=== PATIENT | male | born 1995 | race Caucasian/White ===

== ENCOUNTER 2023-12-10 13:07 | Emergency (ER) | payer SELFPAY ==
--- NOTE | 2023-12-10 13:45 | ER ---
Nurse's Notes [facility] Name: Baljinder Hernandez Jr Age: 28 yrs Sex: Male : 1995 Arrival Date: 12/10/2023 Time: 13:07 Bed IW1 Private MD: Diagnosis: Encounter for screening, unspecified Presentation: 12/09 13:32 Chief complaint: Patient states: "I just need a work note to return to work, I was sick aa5 with a stomach bug throwing up". Coronavirus screen: vomiting. Ebola Screen: Patient denies travel to an Ebola-affected area in the 21 days before illness onset. Initial Sepsis Screen: Does the patient meet any 2 criteria? No. Patient's initial sepsis screen is negative. Does the patient have a suspected source of infection? No. Patient's initial sepsis screen is negative. Risk Assessment: Do you want to hurt yourself or someone else? Patient reports no desire to harm self or others. Onset of symptoms was 2023. 13:32 Method Of Arrival: Ambulatory aa5 13:32 Acuity: SANDRITA 5 aa5 Triage Assessment: 13:33 General: Appears comfortable, Behavior is calm, cooperative. Pain: Denies pain. EENT: aa5 No signs and/or symptoms were reported regarding the EENT system. Neuro: Level of Consciousness is awake, alert, obeys commands, Oriented to person, place, time, situation. Cardiovascular: Patient's skin is warm and dry. Respiratory: Airway is patent Respiratory effort is even, unlabored, Respiratory pattern is regular, symmetrical. GI: Abdomen is non-distended, Bowel sounds present X 4 quads. Abd is soft and non tender X 4 quads. : No signs and/or symptoms were reported regarding the genitourinary system. Derm: Skin is pink, warm \\T\\ dry. Musculoskeletal: Range of motion: intact in all extremities. Historical: - Allergies: 13:33 No Known Allergies; aa5 - Home Meds: 13:33 None [Active]; aa5 - PMHx: 13:33 None; aa5 - Immunization history:: Adult Immunizations unknown. - Infectious Disease History:: Denies. - Social history:: Smoking status: Reported history of juuling and/or vaping. Screenin:33 [facility] ED Fall Risk Assessment (Adult) History of falling in the last 3 months, aa5 including since admission No falls in past 3 months (0 pts) Confusion or Disorientation No (0 pts) Intoxicated or Sedated No (0 pts) Impaired Gait No (0 pts) Mobility Assist Device Used No (0 pt) Altered Elimination No (0 pt) Score/Fall Risk Level 0 - 2 = Low Risk Oriented to surroundings, Maintained a safe environment, Educated pt \\T\\ family on fall prevention, incl call for assistance when getting out of bed. Abuse screen: Denies threats or abuse. Nutritional screening: No deficits noted. Tuberculosis screening: No symptoms or risk factors identified. Assessment: 13:55 Reassessment: Patient is alert, oriented x 3, equal unlabored respirations, skin aa5 warm/dry/pink. Vital Signs: 13:32 BP 126 / 76; Pulse 85; Resp 16 S; Temp 98.6(O); Pulse Ox 100% on R/A; Weight 90.72 kg aa5 (R); Height 6 ft. 0 in. (R); 13:32 Body Mass Index 27.12 (90.72 kg, 182.88 cm) aa5 ED Course: 13:10 Patient arrived in ED. rg4 13:11 Jluis Dotosn PA is PHCP. cp 13:11 Marcus Amaya MD is Attending Physician. cp 13:32 Arm band placed on. aa5 13:32 Patient has correct armband on for positive identification. aa5 13:33 Triage completed. aa5 13:55 Gabby Manriquez RN is Primary Nurse. aa5 13:55 No provider procedures requiring assistance completed. Patient did not have IV access aa5 during this emergency room visit. Administered Medications: No medications were administered Medication: 13:55 VIS not applicable for this client. aa5 Outcome: 13:44 Discharge ordered by MD. cp 13:54 Discharged to home ambulatory, aa5 13:54 Condition: good 13:54 Discharge instructions given to patient, Instructed on discharge instructions, follow up and referral plans. Demonstrated understanding of instructions, follow-up care, 13:55 Patient left the ED. aa5 Signatures: Gabby Manriquez, ROGELIO RN aa5 Jluis Dotson PA PA Helene Berry rg4
--- NOTE | 2023-12-10 13:45 | EDPHYS ---
Physician Documentation [facility] Name: Baljinder Hernandez Jr Age: 28 yrs Sex: Male : 1995 Arrival Date: 12/10/2023 Time: 13:07 Bed IW1 Private MD: ED Physician Marcus Amaya HPI: 12/09 13:35 This 28 yrs old Male presents to ER via Ambulatory with complaints of Medical Clearance cp - needs work excuse to return to work. 13:35 The patient presents to the emergency department with nausea, vomiting, that is cp intermittent, diarrhea, that is intermittent, abdominal pain. Onset: The symptoms/episode began/occurred last couple days. Possible causes: unknown. 13:35 Associated signs and symptoms: Pertinent negatives: fever, GI bleeding. Severity of cp symptoms: in the emergency department the symptoms have improved. Patient requests note for work and declines any testing at this time. Reports symptoms improving. Historical: - Allergies: 13:33 No Known Allergies; aa5 - Home Meds: 13:33 None [Active]; aa5 - PMHx: 13:33 None; aa5 - Immunization history:: Adult Immunizations unknown. - Infectious Disease History:: Denies. - Social history:: Smoking status: Reported history of juuling and/or vaping. ROS: 13:35 Constitutional: Negative for body aches, chills, fever, poor PO intake, cp 13:35 Abdomen/GI: Positive for nausea, vomiting, and diarrhea, Negative for constipation, 13:35 Respiratory: Negative for cough, shortness of breath, wheezing, cp Exam: 13:40 Constitutional: The patient appears in no acute distress, alert, awake, comfortable, cp non-toxic, well developed, well nourished, 13:40 Head/Face: Normocephalic, atraumatic. cp 13:40 Eyes: Periorbital structures: appear normal, Conjunctiva: normal, no exudate, no injection, Sclera: no appreciated abnormality, Lids and lashes: appear normal, bilaterally, 13:40 ENT: External ear(s): are unremarkable, Nose: is normal, Mouth: Lips: moist, Oral mucosa: pink and intact, moist, Posterior pharynx: Airway: no evidence of obstruction, patent, 13:40 Chest/axilla: Inspection: normal, 13:40 Cardiovascular: Rate: normal, Rhythm: regular, 13:40 Respiratory: the patient does not display signs of respiratory distress, Respirations: normal, no use of accessory muscles, no retractions, labored breathing, is not present, Breath sounds: are clear throughout, no decreased breath sounds, no stridor, no wheezing, 13:40 Abdomen/GI: Exam negative for discomfort, distension, guarding, Inspection: abdomen appears normal, 13:40 Skin: no rash present. Vital Signs: 13:32 BP 126 / 76; Pulse 85; Resp 16 S; Temp 98.6(O); Pulse Ox 100% on R/A; Weight 90.72 kg aa5 (R); Height 6 ft. 0 in. (R); 13:32 Body Mass Index 27.12 (90.72 kg, 182.88 cm) aa5 MDM: 13:32 Patient medically screened. cp 13:40 Differential diagnosis: Nonspecific abd pain, gastritis, cholecystitis, pancreatitis, cp appendicitis, diverticulitis, viral gastroenteritis, gastroenteritis. 13:43 Data reviewed: vital signs, nurses notes, and as a result, I will discharge patient. cp 13:43 Counseling: I had a detailed discussion with the patient and/or guardian regarding the cp historical points, exam findings, and any diagnostic results supporting the discharge/admit diagnosis, to return to the emergency department if symptoms worsen or persist or if there are any questions or concerns that arise at home. Administered Medications: No medications were administered Disposition Summary: 12/10/23 13:44 Discharge Ordered Notes: Location: Home cp Problem: new cp Symptoms: have improved cp Condition: Stable cp Diagnosis - Encounter for screening, unspecified cp Followup: cp - With: Private Physician - When: 1 - 2 days - Reason: Worsening of condition Discharge Instructions: - Discharge Summary Sheet cp - Form - Excuse from Work, School, or Physical Activity cp Forms: - Medication Reconciliation Form cp - Antibiotic Education cp - Prescription Opioid Use cp - Patient Portal Instructions cp - Leadership Thank You Letter cp - Work release form hb Signatures: Gabby Manriquez RN RN aa5 Jluis Dotson PA PA cp Corrections: (The following items were deleted from the chart) 13:38 13:37 This 28 yrs old Male presents to ER via Ambulatory with complaints of Medical cp Clearance - needs work excuse to return to work. cp
[2023-12-11 14:44] VITALS: BP 126/76; TEMP 98.6; O2SAT 100
== END 2023-12-10 13:55 | disposition home or self-care (01) ==
LOC: ER 13:07
DX: Z02.79 Encounter for issue of other medical certificate (principal)
CPT/HCPCS: 99282

== ENCOUNTER 2024-08-01 17:36 | Emergency (ER) | payer SELFPAY ==
[2024-08-01] MEDS ORDERED: NEOMY/POLY/HC 1% OTIC DROPS ONE (18:57)
[2024-08-01 19:10] LABS: SARS-CoV-2 Antigen CONTROL BLUE LINE VIS/BG OK
--- NOTE | 2024-08-01 19:10 | ER ---
Nurse's Notes [facility] Name: Baljinder Hernandez Jr Age: 28 yrs Sex: Male : 1995 Arrival Date: 08/01/2024 Time: 17:36 Bed 11 Private MD: Diagnosis: Acute upper respiratory infection, unspecified;Acute serous otitis media, bilateral;Otitis externa in other diseases classified elsewhere, bilateral;Fever, unspecified;SARS-associated coronavirus as the cause of diseases classified elsewhere Presentation: 08/01 18:05 Chief complaint: Left ear pain, fever, body aches, sore throat, cough, congestion, and hb N/D x 2 days. TMAX 102. Coronavirus screen: Client presents with at least one sign or symptom that may indicate coronavirus-19. Provider contacted for isolation considerations. Ebola Screen: No symptoms or risks identified at this time. Initial Sepsis Screen: Does the patient meet any 2 criteria? No. Patient's initial sepsis screen is negative. Does the patient have a suspected source of infection? No. Patient's initial sepsis screen is negative. Risk Assessment: Do you want to hurt yourself or someone else? Patient reports no desire to harm self or others. Onset of symptoms was July 31, 2024. 18:05 Method Of Arrival: Ambulatory hb 18:05 Acuity: SANDRITA 4 hb Historical: - Allergies: 18:07 No Known Allergies; hb - Home Meds: 18:07 None [Active]; hb - PMHx: 18:07 None; hb - PSHx: 18:07 None; hb - Immunization history:: Adult Immunizations up to date. - Infectious Disease History:: Denies. - Social history:: Smoking status: Reported history of juuling and/or vaping. Screenin:46 [facility] ED Fall Risk Assessment (Adult) History of falling in the last 3 months, tm6 including since admission No falls in past 3 months (0 pts) Confusion or Disorientation No (0 pts) Intoxicated or Sedated No (0 pts) Impaired Gait No (0 pts) Mobility Assist Device Used No (0 pt) Altered Elimination No (0 pt) Score/Fall Risk Level 0 - 2 = Low Risk Oriented to surroundings, Maintained a safe environment, Educated pt \T\ family on fall prevention, incl call for assistance when getting out of bed. Abuse screen: Denies threats or abuse. Denies injuries from another. Nutritional screening: No deficits noted. Tuberculosis screening: No symptoms or risk factors identified. Assessment: 19:45 General: Appears in no apparent distress. uncomfortable, Behavior is calm, cooperative. tm6 Pain: Denies pain. Pain: Complains of pain in left ear and right ear. Neuro: Level of Consciousness is awake, alert, obeys commands. Neuro: Oriented to person, place, time, situation. Cardiovascular: Patient's skin is warm and dry. Respiratory: Airway is patent Respiratory effort is even, unlabored, Respiratory pattern is regular, symmetrical. GI: No signs and/or symptoms were reported involving the gastrointestinal system. Abdomen is flat, non-distended. : No signs and/or symptoms were reported regarding the genitourinary system. EENT: Reports pain in right ear and left ear. Derm: No signs and/or symptoms reported regarding the dermatologic system. Musculoskeletal: No signs and/or symptoms reported regarding the musculoskeletal system. Vital Signs: 18:05 BP 132 / 80; Pulse 99; Resp 20; Temp 100.8(O); Pulse Ox 100% on R/A; Weight 90.72 kg; hb Height 6 ft. 0 in. ; Pain 5/10; 19:45 BP 130 / 79; Pulse 80; Resp 17; Temp 99.9; Pulse Ox 100% on R/A; Pain 5/10; tm6 18:05 Body Mass Index 27.12 (90.72 kg, 182.88 cm) hb 18:05 Pain Scale: Adult hb 19:45 Pain Scale: Adult tm6 ED Course: 17:39 Patient arrived in ED. mr 17:42 Jluis Hansen MD is Attending Physician. inge 18:07 Triage completed. hb 18:07 Arm band placed on. hb 19:06 Danielle Pacheco MD is Referral Physician. inge 19:46 Patient has correct armband on for positive identification. Provided Education on: use tm6 of prescription meds. 19:46 No provider procedures requiring assistance completed. Patient did not have IV access tm6 during this emergency room visit. Administered Medications: 18:56 CANCELLED (Duplicate Order): ciprodexdrops 4 drops Otic once inge 19:04 CANCELLED (Duplicate Order): moxifloxacin Drops 0.5 % (Moxeza) 2 drops Ophthalmic once; inge 2 DROPS TO EACH EAR 19:13 CANCELLED (Duplicate Order): amoxicillin-xjstzefdjis624 mg PO once inge 19:27 Drug: Ibuprofen PO 800 mg PO once Route: PO; tm6 19:48 Follow up: Response: Medication administered at discharge. tm6 19:27 Drug: Acetaminophen PO 650 mg PO once Route: PO; tm6 19:48 Follow up: Response: Medication administered at discharge. tm6 19:27 Drug: AZITHromycin PO 500 mg PO once Route: PO; tm6 19:48 Follow up: Response: Medication administered at discharge. tm6 19:45 Drug: Rocephin (cefTRIAXone) IM 1 grams IM once Route: IM; Site: left gluteus; tm6 19:48 Follow up: Response: Medication administered at discharge. tm6 19:45 Drug: Obtcwlaa-Mxjdwgjwh-GD Otic Drops 4 drops Otic once; EACH EAR Route: Otic; Site: tm6 both ears; 19:48 Follow up: Response: Medication administered at discharge. tm6 Medication: 19:45 VIS not applicable for this client. tm6 Outcome: 19:09 Discharge ordered by [facility] 19:46 Discharged to home ambulatory, tm6 19:46 Condition: stable 19:46 Discharge instructions given to patient, Instructed on discharge instructions, follow up and referral plans. medication usage, Demonstrated understanding of instructions, follow-up care, medications, Prescriptions given X 3, 19:48 Patient left the ED. tm6 Signatures: Jluis Hansen MD MD cha Rivera, Mary, Reg Reg mr Milvia Pena, Liane Peraza RN, RN RN tm6
--- NOTE | 2024-08-01 19:10 | EDPHYS ---
Physician Documentation [facility] Name: Baljinder Hernandez Jr Age: 28 yrs Sex: Male : 1995 Arrival Date: 08/01/2024 Time: 17:36 Bed 11 Private MD: ED Physician Jluis Hansen HPI: 08/01 18:54 This 28 yrs old Male presents to ER via Ambulatory with complaints of Ear inge Pain, Flu Symptoms. 18:54 The patient presents with pain, that is chronic. The complaints affect the right ear inge and left ear. Onset: The symptoms/episode began/occurred 2 day(s) ago. Modifying factors: The symptoms are alleviated by nothing, the symptoms are aggravated by nothing. Associated signs and symptoms: Pertinent positives: fever, sore throat, cough. Severity of symptoms: At their worst the symptoms were moderate in the emergency department the symptoms are unchanged. The patient has experienced similar episodes in the past, a few times. Historical: - Allergies: 18:07 No Known Allergies; hb - Home Meds: 18:07 None [Active]; hb - PMHx: 18:07 None; hb - PSHx: 18:07 None; hb - Immunization history:: Adult Immunizations up to date. - Infectious Disease History:: Denies. - Social history:: Smoking status: Reported history of juuling and/or vaping. ROS: 18:57 Constitutional: Negative for fever, chills, and weight loss, Eyes: Negative for injury, inge pain, redness, and discharge, Neck: Negative for injury, pain, and swelling, Cardiovascular: Negative for chest pain, palpitations, and edema, Respiratory: Negative for shortness of breath, cough, wheezing, and pleuritic chest pain, Abdomen/GI: Negative for abdominal pain, nausea, vomiting, diarrhea, and constipation, Back: Negative for injury and pain, : Negative for injury, bleeding, discharge, and swelling, MS/Extremity: Negative for injury and deformity, Skin: Negative for injury, rash, and discoloration, Neuro: Negative for headache, weakness, numbness, tingling, and seizure, Psych: Negative for depression, anxiety, suicide ideation, homicidal ideation, and hallucinations, Allergy/Immunology: Negative for hives, rash, and allergies, Endocrine: Negative for neck swelling, polydipsia, polyuria, polyphagia, and marked weight changes, Hematologic/Lymphatic: Negative for swollen nodes, abnormal bleeding, and unusual bruising, 18:57 ENT: Positive for ear pain, rhinorrhea, Exam: 18:57 Constitutional: This is a well developed, well nourished patient who is awake, alert, inge and in no acute distress. Head/Face: Normocephalic, atraumatic. Eyes: Pupils equal round and reactive to light, extra-ocular motions intact. Lids and lashes normal. Conjunctiva and sclera are non-icteric and not injected. Cornea within normal limits. Periorbital areas with no swelling, redness, or edema. Neck: Trachea midline, no thyromegaly or masses palpated, and no cervical lymphadenopathy. Supple, full range of motion without nuchal rigidity, or vertebral point tenderness. No Meningismus. Chest/axilla: Normal chest wall appearance and motion. Nontender with no deformity. No lesions are appreciated. Cardiovascular: Regular rate and rhythm with a normal S1 and S2. No gallops, murmurs, or rubs. Normal PMI, no JVD. No pulse deficits. Respiratory: Lungs have equal breath sounds bilaterally, clear to auscultation and percussion. No rales, rhonchi or wheezes noted. No increased work of breathing, no retractions or nasal flaring. Abdomen/GI: Soft, non-tender, with normal bowel sounds. No distension or tympany. No guarding or rebound. No evidence of tenderness throughout. Back: No spinal tenderness. No costovertebral tenderness. Full range of motion. Skin: Warm, dry with normal turgor. Normal color with no rashes, no lesions, and no evidence of cellulitis. MS/ Extremity: Pulses equal, no cyanosis. Neurovascular intact. Full, normal range of motion., bilateral aka Neuro: Awake and alert, GCS 15, oriented to person, place, time, and situation. Cranial nerves II-XII grossly intact. Motor strength 5/5 in all extremities. Sensory grossly intact. Cerebellar exam normal. Normal gait. Psych: Awake, alert, with orientation to person, place and time. Behavior, mood, and affect are within normal limits. 18:57 ENT: Nose: nasal drainage, and is seen coming from both nares, that is clear, Mouth: Oral mucosa: normal, moist, Gums: normal with healthy appearance, abscess, is not appreciated, drooling, is not appreciated, Posterior pharynx: Airway: normal, no evidence of obstruction, Tonsils: with erythema, Uvula: normal, midline, non-edematous, erythema, swelling, is not appreciated, erythema, that is mild, peritonsillar mass, is not appreciated, Vital Signs: 18:05 BP 132 / 80; Pulse 99; Resp 20; Temp 100.8(O); Pulse Ox 100% on R/A; Weight 90.72 kg; hb Height 6 ft. 0 in. ; Pain 5/10; 19:45 BP 130 / 79; Pulse 80; Resp 17; Temp 99.9; Pulse Ox 100% on R/A; Pain 5/10; tm6 18:05 Body Mass Index 27.12 (90.72 kg, 182.88 cm) hb 18:05 Pain Scale: Adult hb 19:45 Pain Scale: Adult tm6 MDM: 17:43 Medical Screening Exam initiated inge 19:00 Differential diagnosis: otitis media, otitis externa, ruptured TM, acute otalgia, inge cerumen impaction, barotrauma , viral Infection, bacterial infection, URI. Antibiotic administration: The patient is discharged and will get outpatient antibiotics, Amoxicillin. Differential Diagnosis sepsis, flu. Data reviewed: vital signs, nurses notes, lab test result(s). Consideration of Admission/Observation Escalation of care including admission/observation considered. I considered the following discharge prescriptions or medication management in the emergency department Medications were administered in the Emergency Department. See MAR. Test considered but Not performed: Labs: NO CBC, NO COMP MET. 08/01 17:43 Order name: Flu [facility] 08/01 17:43 Order name: SARS RAPID [facility] 08/01 17:43 Order name: Strep [facility] 08/01 19:22 Order name: Throat Culture EDMS Administered Medications: 18:56 CANCELLED (Duplicate Order): ciprodexdrops [address] [facility] 19:04 CANCELLED (Duplicate Order): moxifloxacin Drops 0.5 % (Moxeza) 2 drops Ophthalmic once; [facility] 2 DROPS TO EACH EAR 19:13 CANCELLED (Duplicate Order): amoxicillin-rhxqwmwusve162 mg PO once [facility] 19:27 Drug: Ibuprofen PO 800 mg PO once Route: PO; tm6 19:48 Follow up: Response: Medication administered at discharge. tm6 19:27 Drug: Acetaminophen PO 650 mg PO once Route: PO; tm6 19:48 Follow up: Response: Medication administered at discharge. tm6 19:27 Drug: AZITHromycin PO 500 mg PO once Route: PO; tm6 19:48 Follow up: Response: Medication administered at discharge. tm6 19:45 Drug: Rocephin (cefTRIAXone) IM 1 grams IM once Route: IM; Site: left gluteus; tm6 19:48 Follow up: Response: Medication administered at discharge. tm6 19:45 Drug: Nkygttkk-Uvxxuavop-KF Otic Drops 4 drops Otic once; EACH EAR Route: Otic; Site: tm6 both ears; 19:48 Follow up: Response: Medication administered at discharge. tm6 Disposition Summary: 08/01/24 19:09 Discharge Ordered Notes: Location: Home inge Problem: new inge Symptoms: have improved inge Condition: Stable inge Diagnosis - Acute upper respiratory infection, unspecified inge - Acute serous otitis media, bilateral inge - Otitis externa in other diseases classified elsewhere, bilateral inge - Fever, unspecified inge - SARS-associated coronavirus as the cause of diseases classified elsewhere inge Followup: inge - With: Private Physician - When: 2 - 3 days - Reason: Recheck today's complaints, Continuance of care, Re-evaluation by your physician Followup: inge - With: Danielle Pacheco MD - When: 2 - 3 days - Reason: Recheck today's complaints, Re-evaluation by your physician Discharge Instructions: - Discharge Summary Sheet inge - Ear Drops, Adult inge - Otitis Externa inge - Fever, Adult inge - Upper Respiratory Infection, Adult inge - Cool Mist Vaporizer inge - Otitis Externa, Vlui-dy-Auix inge - Otitis Media, Adult, Oqhi-ny-Seqa inge - Upper Respiratory Infection, Adult, Hpda-lh-Gypm inge - Cough, Adult inge - COVID-19 inge - Symptoms of COVID-19 - [facility] (10/28/2021) inge - COVID-19: Quarantine and Isolation - [facility] (11/05/2021) inge - COVID-19: What to Do If You Are Sick - [facility] (10/28/2021) [facility] Forms: - Medication Reconciliation Form inge - Antibiotic Education inge - Prescription Opioid Use inge - Patient Portal Instructions [facility] - Leadership Thank You Letter [facility] - Work release form tm6 Prescriptions: - loungbpm-avejpyltm-XE 3.5-10,000-1 mg/mL-unit/mL-% Otic solution - instill 3 drop OTIC route 3 times per day; 10 milliliter; Refills: 0, Product [facility] Selection Permitted - Asmita-D 12 Hour 60-120 mg Oral Tablet Sustained Release 12 hr - take 1 tablet ORAL route every 12 hours As needed; 20 tablet; Refills: 0, [facility] Product Selection Permitted - Zithromax 500 mg Oral Tablet - take 1 tablet ORAL route once daily for 5 days; 5 tablet; Refills: 0, Product [facility] Selection Permitted Signatures: Dispatcher [employer] EDJluis Clifford MD MD cha Baxter, Heather, RN RN Liane Khan RN RN tm6 Corrections: (The following items were deleted from the chart) 18:56 18:54 CIPRODEX Otic Drops 4 drops Otic in both ears once ordered. [facility] 19:04 18:57 moxifloxacin Drops 0.5 % (Moxeza) 2 drops Ophthalmic once; [address] [facility] ordered. [facility] 19:13 18:54 Amoxicillin-Clavulanate PO 875 mg PO once ordered. [facility]
[2024-08-01 19:13] LABS: SARS-CoV-2 Antigen Rapid Res Positive (Negative)
[2024-08-01] MEDS ORDERED: CEFTRIAXONE 1000 MG/VIAL ONE (19:21)
[2024-08-01] MEDS ORDERED: IBUPROFEN 400 MG TAB ONE (19:21)
[2024-08-01] MEDS ORDERED: AZITHROMYCIN 250 MG TAB ONE (19:21)
[2024-08-01] MEDS ORDERED: LIDOCAINE 1% MPF 2 ML AMPULE ONE (19:22)
[2024-08-01] MEDS ORDERED: ACETAMINOPHEN 325 MG TABLET ONE (19:22)
[2024-08-01 20:19] VITALS: O2SAT 100
[2024-08-01 20:20] VITALS: BP 130/79; TEMP 99.9
== END 2024-08-01 19:48 | disposition home or self-care (01) ==
LOC: ER 17:36
DX: H65.03 Acute serous otitis media, bilateral (principal); H62.43 Otitis externa in other diseases classified elsewhere, bilateral; U07.1 COVID-19; B97.21 SARS-associated coronavirus as the cause of diseases classified elsewhere; J06.9 Acute upper respiratory infection, unspecified; R50.9 Fever, unspecified; F17.290 Nicotine dependence, other tobacco product, uncomplicated
CPT/HCPCS: 36415; 87070; 87081; 87804; 87811; 96372; 99284; J0696